=== PATIENT | female | born 1970 | race African-American/Black ===

== ENCOUNTER 2017-05-30 12:00 | Emergency (ER) | payer BC ==
--- NOTE | 2017-05-30 13:36 | EDM.PDOC ---
ED HPI GENERAL MEDICAL PROBLEM - General Chief Complaint: Lower Extremity Injury/Pain Stated Complaint: RIGHT LEG PAIN AND BURNING Time Seen by Provider: 05/30/17 12:45 Source of Information: Reports: Patient History Limitations: Reports: No Limitations - History of Present Illness INITIAL COMMENTS - FREE TEXT/NARRATIVE: History of present illness: [46-year-old female comes in complaining of right-sided leg pain. Patient has a small inflamed area lateral to her popliteal space. Consistent with a small abscess with and erythema around it patient insists that in fact it is a varicose vein. Patient indicates that she feels certain she has a PE and would like to be evaluated for same.] Review of systems: As per history of present illness and below otherwise all systems reviewed and negative. Past medical history: As per history of present illness and as reviewed below otherwise noncontributory. Surgical history: As per history of present illness and as reviewed below otherwise noncontributory. Social history: No reported history of drug or alcohol abuse. Family history: As per history of present illness and as reviewed below otherwise noncontributory. Physical exam: HEENT: Atraumatic, normocephalic, pupils reactive, negative for conjunctival pallor or scleral icterus, mucous membranes moist, throat clear, neck supple, nontender, trachea midline. Lungs: Clear to auscultation, breath sounds equal bilaterally, chest nontender. Heart: S1S2, regular, negative for clicks, rubs, or JVD. Abdomen: Soft, nondistended, nontender. Negative for masses or hepatosplenomegaly. Negative for costovertebral tenderness. Pelvis: Stable nontender. Genitourinary: Deferred. Rectal: Deferred. Extremities: Right knee with a small pustule lateral to the popliteal space, negative for cords or calf pain. Neurovascular unremarkable. Neuro: Awake, alert, oriented. Cranial nerves II through XII unremarkable. Cerebellum unremarkable. Motor and sensory unremarkable throughout. Exam nonfocal. Diagnostics: [Venous Doppler of right lower extremity] Therapeutics: [] Impression: [#1 leg pain #2 there varicose vein #3 localized infection] Plan: [Refill of antibiotics follow-up with primary care] Definitive disposition and diagnosis as appropriate pending reevaluation and review of above. - Related Data Allergies Allergy/AdvReac Type Severity Reaction Status Date / Time No Known Allergies Allergy Verified 05/30/17 12:15 Home Meds: Home Meds Cephalexin [Keflex] 500 mg PO QID #40 capsule 05/30/17 [Rx] Past Medical History HEENT History: Reports: None Cardiovascular History: Reports: None Respiratory History: Reports: Other (See Below) Other Respiratory History: Little asthma but doing well, no problem for long time, Denies any use of inhalers Gastrointestinal History: Reports: Other (See Below) Other Gastrointestinal History: Occasional heartburn, treat with Pepto or Gas X Genitourinary History: Reports: None [employer] History: Reports: Other (See Below) Other OB/BYN History: LMP 02-12-15 Musculoskeletal History: Reports: None Neurological History: Reports: None Psychiatric History: Reports: None Endocrine/Metabolic History: Reports: None Hematologic History: Reports: None Immunologic History: Reports: Other (See Below) Other Immunologic History: MRSA positive after and infection 2 1/2 yrs ago, Scheduled follow-up with provider to do testing Oncologic (Cancer) History: Reports: None Dermatologic History: Reports: None - Past Surgical History Head Surgeries/Procedures: Reports: None HEENT Surgical History: Reports: None Cardiovascular Surgical History: Reports: None Respiratory Surgical History: Reports: None GI Surgical History: Reports: None Female Surgical History: Reports: None Endocrine Surgical History: Reports: None Neurological Surgical History: Reports: None Musculoskeletal Surgical History: Reports: Carpal Tunnel Oncologic Surgical History: Reports: None Dermatological Surgical History: Reports: None Social & Family History - Family History Family Medical History: Noncontributory - Tobacco Use Smoking Status *Q: Never Smoker Second Hand Smoke Exposure: No - Caffeine Use Caffeine Use: Reports: Coffee, Tea - Alcohol Use Days Per Week of Alcohol Use: 0 Number of Drinks Per Day: 0 Total Drinks Per Week: 0 - Recreational Drug Use Recreational Drug Use: No Drug Use in Last 12 Months: No Review of Systems - Review of Systems Review Of Systems: See Below (History of present illness) ED EXAM, GENERAL - Physical Exam Exam: See Below (See history of present illness) Course - Vital Signs Last Recorded V/S: Last Vital Signs Temp 36.0 C 05/30/17 13:10 Pulse 68 05/30/17 14:03 Resp 12 05/30/17 14:03 BP 143/70 H 05/30/17 14:03 Pulse Ox 99 05/30/17 14:03 - Orders/Labs/Meds Orders: Active Orders 24 hr Category Date Time Status Venous Doppler Lwr Ext Rt [US] Stat Exams 05/30/17 12:36 Taken Departure - Departure Time of Disposition: 14:34 Disposition: Home, Self-Care 01 Condition: Good Clinical Impression: Leg pain, Cellulitis - Discharge Information Referrals: Rehana Davalos DO [Primary Care Provider] - Forms: ED Department Discharge Additional Instructions: The following information is given to patients seen in the emergency department who are being discharged to home. This information is to outline your options for follow-up care. We provide all patients seen in our emergency department with a follow-up referral. The need for follow-up, as well as the timing and circumstances, are variable depending upon the specifics of your emergency department visit. If you don't have a primary care physician on staff, we will provide you with a referral. We always advise you to contact your personal physician following an emergency department visit to inform them of the circumstance of the visit and for follow-up with them and/or the need for any referrals to a consulting specialist. The emergency department will also refer you to a specialist when appropriate. This referral assures that you have the opportunity for follow-up care with a specialist. All of these measure are taken in an effort to provide you with optimal care, which includes your follow-up. Under all circumstances we always encourage you to contact your private physician who remains a resource for coordinating your care. When calling for follow-up care, please make the office aware that this follow-up is from your recent emergency room visit. If for any reason you are refused follow-up, please contact the Emergency Department at and asked to speak to the emergency department charge nurse. Take medication as directed Follow-up with PCP in 2-3 days Return to ED as needed as discussed - My Orders Last 24 Hours: My Active Orders 05/30/17 12:36 Venous Doppler Lwr Ext Rt [US] Stat - Assessment/Plan Last 24 Hours: My Active Orders 05/30/17 12:36 Venous Doppler Lwr Ext Rt [US] Stat
[2017-05-30 16:41] VITALS: BP 149/72
--- NOTE | 2017-06-01 13:32 | US ---
EXAM DATE: 05/30/17 PATIENT'S AGE: 46 Patient: ALVINO BLACKWOOD Facility: [place], [place] Site . Site : [id number] Study: US Extremity [id number]/28/2017 1:54:49 PM Ordering Physician: Doctor Azevedo Final Report: INDICATION: Right leg pain. TECHNIQUE: Ultrasound venous duplex lower right extremity. Compression venous exam was performed using yao-scale, color Doppler, and spectral Doppler imaging. COMPARISON: No prior. FINDINGS: Sonographic imaging demonstrates the right common femoral, deep femoral, superficial femoral, popliteal, posterior tibial and greater saphenous veins to be fully compressible with normal color Doppler blood flow. IMPRESSION: No deep venous thrombosis within the right lower extremity. Dictated by Aramis Jiménez MD @ 05/30/2017 2:22:00 PM Dictated by: Aramis Jiménez MD @ 05/30/2017 14:22:07 (Electronic Signature) Report Signed by Proxy. FUNMILAYO
== END 2017-05-30 14:45 | disposition home or self-care (01) ==
LOC: MW.ED 12:00
DX: L03.115 Cellulitis of right lower limb (principal)
CPT/HCPCS: 93971-26-RT; 93971-RT; 99283; 99284-25

== ENCOUNTER 2019-03-17 14:34 | Emergency (ER) | payer BC ==
[2019-03-17 14:53] VITALS: BP 144/96
--- NOTE | 2019-03-17 14:56 | EDM.PDOC ---
ED HPI GENERAL MEDICAL PROBLEM - General Chief Complaint: Neck Problem Stated Complaint: neck and ear pain moving into head Time Seen by Provider: 03/17/19 14:48 Source of Information: Reports: Patient History Limitations: Reports: No Limitations - History of Present Illness INITIAL COMMENTS - FREE TEXT/NARRATIVE: HISTORY AND PHYSICAL: History of present illness: Patient is a 48-year-old female who presents to the ED today with concern of neck pain that occurred today while at work. Patient states she is a [employer] and was helped transferring a patient when she felt a burning sensation in the right side of her neck. Patient states since then she's had a hard time moving her neck due to this pain and feels like the right side of her neck is "on fire ". Patient denies any trauma or direct trauma or injury to the neck. Patient denies any other symptoms or concerns. Patient states she has a history of tubal ligation. Patient has not taken anything for her symptoms. Patient denies fever, chills, chest pain, shortness of breath, or cough. Denies headache, change in vision, syncope, or near syncope. Denies nausea, vomiting, abdominal pain, diarrhea, constipation, or dysuria. Has not noted any blood in urine or stool. Patient has been eating and drinking appropriately. Review of systems: As per history of present illness and below otherwise all systems reviewed and negative. Past medical history: As per history of present illness and as reviewed below otherwise noncontributory. Surgical history: As per history of present illness and as reviewed below otherwise noncontributory. Social history: See social history for further information Family history: As per history of present illness and as reviewed below otherwise noncontributory. Physical exam: General: Patient is alert, oriented, and in no acute distress. Patient sitting comfortably on exam table. HEENT: Atraumatic, normocephalic, pupils equal and reactive bilaterally, negative for conjunctival pallor or scleral icterus, mucous membranes moist, TMs normal bilaterally, throat clear, neck supple, nontender, trachea midline. No drooling or trismus noted. No meningeal signs. No hot potato voice noted. Lungs: Clear to auscultation, breath sounds equal bilaterally, chest nontender. Heart: S1S2, regular rate and rhythm without overt murmur Abdomen: Soft, nondistended, nontender. Negative for masses or hepatosplenomegaly. Negative for costovertebral tenderness. Pelvis: Stable nontender. Genitourinary: Deferred. Rectal: Deferred. Skin: Intact, warm, dry. No lesions or rashes noted. Extremities/musculoskeletal: Atraumatic, negative for cords or calf pain. Neurovascular unremarkable. Patient does have pain with insertion of the trapezius muscle on the right side of the neck and pain with palpation of the complete muscle body. Negative point tenderness or pain to palpation of the spinous process of the cervical spine and complete spine. Range of motion of cervical spine is limited due to pain. Patient does have full range of motion of thoracic and lumbar spine. No obvious deformities or complete spine. Neuro: Awake, alert, oriented. Cranial nerves II through XII unremarkable. Cerebellum unremarkable. Motor and sensory unremarkable throughout. Exam nonfocal. Notes: Discussed the importance for follow-up with primary care provider. Voices understanding and is agreeable to plan of care. Denies any further questions or concerns at this time. Diagnostics: Cervical spine XR Therapeutics: Norflex, Toradol Prescription: Diclofenac, Flexeril Impression: Neck pain / spasm Plan: 1. Rest, ice, the affected area. You can apply ice and or heat 15 minutes on, 15 minutes off. 2. Tylenol as directed for pain management or discomfort. Take medication as prescribed. 3. Follow up with the primary care provider as discussed. Return to the ED as needed and as discussed. Definitive disposition and diagnosis as appropriate pending reevaluation and review of above. Right Neck Pain Score (Numeric/FACES): 10 - Related Data Allergies Allergy/AdvReac Type Severity Reaction Status Date / Time No Known Allergies Allergy Verified 03/17/19 14:48 Home Meds: Home Meds Cyclobenzaprine [Flexeril] 10 mg PO TID PRN #10 tab 03/17/19 [Rx] Diclofenac Sodium [Voltaren] 75 mg PO BIDMEALS PRN #10 tab.cr 03/17/19 [Rx] Sulfamethoxazole/Trimethoprim [Bactrim Ds Tablet] 1 each PO ASDIRECTED 03/17/19 [History] Past Medical History HEENT History: Reports: None Cardiovascular History: Reports: None Respiratory History: Reports: Other (See Below) Other Respiratory History: Little asthma but doing well, no problem for long time, Denies any use of inhalers Gastrointestinal History: Reports: Other (See Below) Other Gastrointestinal History: Occasional heartburn, treat with Pepto or Gas X Genitourinary History: Reports: None [employer] History: Reports: Other (See Below) Other [employer] History: LMP 02-12-15 Musculoskeletal History: Reports: None Neurological History: Reports: None Psychiatric History: Reports: None Endocrine/Metabolic History: Reports: None Hematologic History: Reports: None Immunologic History: Reports: Other (See Below) Other Immunologic History: MRSA positive after and infection 2 1/2 yrs ago, Scheduled follow-up with provider to do testing Oncologic (Cancer) History: Reports: None Dermatologic History: Reports: None - Infectious Disease History Infectious Disease History: Reports: None - Past Surgical History Head Surgeries/Procedures: Reports: None HEENT Surgical History: Reports: None Cardiovascular Surgical History: Reports: None Respiratory Surgical History: Reports: None GI Surgical History: Reports: None Female Surgical History: Reports: None Endocrine Surgical History: Reports: None Neurological Surgical History: Reports: None Musculoskeletal Surgical History: Reports: Carpal Tunnel Oncologic Surgical History: Reports: None Dermatological Surgical History: Reports: None Social & Family History - Family History Family Medical History: Noncontributory - Tobacco Use Smoking Status *Q: Never Smoker - Caffeine Use Caffeine Use: Reports: Coffee - Recreational Drug Use Recreational Drug Use: No ED ROS GENERAL - Review of Systems Review Of Systems: ROS reveals no pertinent complaints other than HPI. ED EXAM, GENERAL - Physical Exam Exam: See Below (see dictation) Course - Vital Signs Last Recorded V/S: Last Vital Signs Temp 36.4 C 03/17/19 14:50 Pulse 65 03/17/19 14:50 Resp 16 03/17/19 14:50 BP 144/96 H 03/17/19 14:50 Pulse Ox 97 03/17/19 14:50 - Orders/Labs/Meds Meds: Medications Discontinued Medications Generic Name Dose Route Start Last Admin Trade Name Freq PRN Reason Stop Dose Admin Ketorolac Tromethamine 60 mg 03/17/19 15:04 03/17/19 15:38 Toradol IM 03/17/19 15:05 60 mg ONETIME ONE Administration Orphenadrine Citrate 60 mg 03/17/19 15:04 03/17/19 15:39 Norflex IM 03/17/19 15:05 60 mg NOW STA Administration Departure - Departure Time of Disposition: 16:16 Disposition: Home, Self-Care 01 Clinical Impression: Neck pain - Discharge Information Prescriptions: Cyclobenzaprine [Flexeril] 10 mg PO TID PRN #10 tab PRN Reason: Spasms Diclofenac Sodium [Voltaren] 75 mg PO BIDMEALS PRN #10 tab.cr PRN Reason: Pain Referrals: PCP,None [Primary Care Provider] - Forms: ED Department Discharge Additional Instructions: The following information is given to patients seen in the emergency department who are being discharged to home. This information is to outline your options for follow-up care. We provide all patients seen in our emergency department with a follow-up referral. The need for follow-up, as well as the timing and circumstances, are variable depending upon the specifics of your emergency department visit. If you don't have a primary care physician on staff, we will provide you with a referral. We always advise you to contact your personal physician following an emergency department visit to inform them of the circumstance of the visit and for follow-up with them and/or the need for any referrals to a consulting specialist. The emergency department will also refer you to a specialist when appropriate. This referral assures that you have the opportunity for follow-up care with a specialist. All of these measure are taken in an effort to provide you with optimal care, which includes your follow-up. Under all circumstances we always encourage you to contact your private physician who remains a resource for coordinating your care. When calling for follow-up care, please make the office aware that this follow-up is from your recent emergency room visit. If for any reason you are refused follow-up, please contact the [facility] Emergency Department at and asked to speak to the emergency department charge nurse. [facility] [address] [place] [id number] [address] 1. Rest, ice, the affected area. You can apply ice and or heat 15 minutes on, 15 minutes off. 2. Tylenol as directed for pain management or discomfort. Take medication as prescribed. 3. Follow up with the primary care provider as discussed. Return to the ED as needed and as discussed.
[2019-03-17] MEDS ORDERED: Ketorolac 60 MG/2 ML SDV IM ONE (15:04)
--- NOTE | 2019-03-17 16:13 | CR ---
INDICATION: Neck pain COMPARISON: None available. FINDINGS: The cervical spine was examined with AP, lateral and open mouth views for a total of three views. There is prominent C6-7 disc degenerative disease with prominent narrowing of the disc space. There is mild loss of height and anterior wedging of the C6 vertebral body, presumably related to the degenerative disease. There appears to be congenital fusion at C7-T1 with absence of the disc space and a decrease in AP diameter of the vertebral bodies. There is mild C5-6 disc degenerative disease with mild anterior osteophytic ridging. The rest of the intervertebral discs are normal in height. There is mild anterior osteophyte formation at C4-5. The prevertebral soft tissues are normal in appearance with no sign of swelling. The airway structures are normal in appearance. IMPRESSION: Prominent C6-7 disc degenerative disease. Mild anterior wedging and loss of height of the C6 vertebral body, presumably related to the degenerative disease. Congenital fusion of C7-T1. Mild C5-6 disc degenerative disease. Dictated by Husam Montero MD @ Mar 17 2019 4:08PM Signed by Dr. Husam Montero @ Mar 17 2019 4:11PM
== END 2019-03-17 16:27 | disposition home or self-care (01) ==
LOC: MW.ED 14:34
DX: M62.838 Other muscle spasm (principal); M54.2 Cervicalgia; Z79.899 Other long term (current) drug therapy
CPT/HCPCS: 72040; 96372; 99283; J1885; J2360